=== PATIENT | female | born 1980 | race African-American/Black ===

== ENCOUNTER 2023-12-05 00:09 | Emergency (ER) | payer MEDICAID ==
[~2023-12-05] VITALS: Ht 157.5 cm; Wt 104.0 kg
[2023-12-05 00:17] VITALS: PULSE 54
[2023-12-05 00:18] VITALS: BP 137/91; RESP 18; TEMP 97.8; O2SAT 97
[2023-12-05 01:00] LABS: BASOPHILS % 1.3 % (0.0-2.0); EOSINOPHILS % 3.2 % (0.0-5.0); HEMATOCRIT. 39.7 % (36.0-48.0); HEMOGLOBIN. 13.6 g/dL (12.0-16.0); LYMPHOCYTES % 35.5 % (20.0-50.0); MEAN CORPUSCULAR HEMOGLOBIN 29.9 pg (28.0-32.0); MEAN CORPUSCULAR HGB CONC 34.2 g/dL (31.0-37.0); MEAN CORPUSCULAR VOLUME 87.3 fL (81.0-99.0); MEAN PLATELET VOLUME 9.3 fl (7.4-10.4); MONOCYTES % 11.3 % (2.0-8.0); NEUTROPHILS % 48.7 % (40.0-76.0); PLATELET 316 x1000/uL (130-400); RED BLOOD CELL COUNT 4.55 mill/uL (4.2-5.4); WHITE BLOOD COUNT 11.1 x1000/uL (4.5-11.0)
[2023-12-05 01:11] LABS: CHLORIDE 102 mEq/L (98-107); POTASSIUM 3.7 mEq/L (3.5-5.1); SODIUM 135 mEq/L (136-145)
[2023-12-05 01:12] LABS: CALCIUM 9.9 mg/dL (8.7-10.4); CARBON DIOXIDE 30 mEq/L (21-32)
[2023-12-05 01:17] LABS: GLUCOSE 100 mg/dL (70-105); UREA NITROGEN BLOOD 24 mg/dL (9-23)
[2023-12-05 01:24] LABS: TROPONIN I HIGH SENSITIVITY < 4 ng/L (3.0-34)
== END 2023-12-05 05:01 | disposition left against medical advice (07) ==
LOC: ER 00:40
DX: R07.9 Chest pain, unspecified (principal); Z53.21 Procedure and treatment not carried out due to patient leaving prior to being seen by health care provider
CPT/HCPCS: 36415; 71045; 80048; 84484; 85025; 93005; 99285